=== PATIENT | male | born 1935 | race Caucasian/White ===

== ENCOUNTER → 2017-04-26 | Outpatient (CLI) | payer OTHER ==
[2017-04-27 14:53] LABS: Stool Occult Bld Immuno 1 Negative (NEGATIVE); Stool Occult Bld Immuno 2 Negative (NEGATIVE)
== END ==
LOC: LAB 09:00 → LAB SHORT 09:00 → LAB FUT 03-25 11:40
PROVIDERS: Internal Medicine Gastroenterology
DX: K57.30 Diverticulosis of large intestine without perforation or abscess without bleeding (principal); Z86.010 Personal history of colon polyps
CPT/HCPCS: G0328

== ENCOUNTER 2022-02-01 21:05 | Emergency (ER) | payer OTHER ==
[~2022-02-01] VITALS: Ht 167.6 cm; Wt 81.7 kg
== END 2022-02-01 22:42 | disposition home or self-care (01) ==
LOC: ER 21:05
DX: S42.211A Unspecified displaced fracture of surgical neck of right humerus, initial encounter for closed fracture (principal); W01.190A Fall on same level from slipping, tripping and stumbling with subsequent striking against furniture, initial encounter
CPT/HCPCS: 73030; A9270

== ENCOUNTER → 2022-10-07 | Outpatient (CLI) | payer OTHER ==
[2022-10-08 11:04] LABS: Stool Occult Blood Guaiac 1 Neg (Neg)
== END | disposition home or self-care (01) ==
LOC: LAB SHORT 10:30 → LAB 10:30
PROVIDERS: Family Medicine
DX: D50.9 Iron deficiency anemia, unspecified (principal)
CPT/HCPCS: 82272

== ENCOUNTER 2023-05-01 22:27 | Inpatient (IN) | payer OTHER ==
[~2023-05-01] VITALS: Ht 165.1 cm; Wt 86.2 kg
[2023-05-01] MEDS ORDERED: Ipratropium/Albuterol SulF 2.5-0.5MG/3 ML Amp INH ONE (22:35)
[2023-05-01] MEDS ORDERED: Magnesium Sulf 2 GM/Water 50ML 50 ML IV ONE (22:35)
[2023-05-01] MEDS ORDERED: Albuterol 2.5 MG/3 ML VIAL INH SCH ×2 (22:35→23:30)
[2023-05-01 22:42] LABS: Base Excess Venous -6.1 mmol/L; Bicarbonate Venous 18.3 mmol/L (24.0-30.0); PCO2 Venous 73.7 mmHg (38-42); pH Blood Venous 7.11 (7.34-7.37)
[2023-05-01 22:49] LABS: BASOPHILS ABSOLUTE AUTO 0.16 K/mm3 (0.00-0.23); BASOPHILS PERCENT AUTO 1 % (0-2); EOSINOPHILS ABSOLUTE AUTO 0.59 K/mm3 (0.00-0.68); EOSINOPHILS PERCENT AUTO 3 % (0-6); Hematocrit 42.2 % (37.0-53.0); Hemoglobin 13.7 g/dL (13.5-17.5); IMMATURE GRAN ABSOLUTE AUTO 0.09 K/mm3 (0.00-0.10); IMMATURE GRAN PERCENT AUTO 1 % (0-1); LYMPHOCYTES PERCENT AUTO 27 % (21-46); MONOCYTES ABSOLUTE AUTO 1.39 K/mm3 (0.16-1.47); MONOCYTES PERCENT AUTO 8 % (4-13); Mean Corpuscular HGB 32.1 pg (26.0-34.0); Mean Corpuscular HGB Conc 32.5 g/dL (31.5-36.5); Mean Corpuscular Volume 99 fL (80-100); Mean Platelet Volume 11.1 fL (9.1-12.4); NEUTROPHILS ABSOLUTE AUTO 10.94 K/mm3 (1.96-9.15); NEUTROPHILS PERCENT AUTO 61 % (41-73); Platelet Count 236 K/mm3 (150-400); RDW Coefficient Variation 13.6 % (11.7-14.2); RDW Standard Deviation 49.6 fL (35.1-46.3); Red Blood Cell Count 4.27 M/mm3 (4.30-5.90); White Blood Cell Count 17.97 K/mm3 (4.00-11.30)
[2023-05-01] MEDS ORDERED: NS 1,000 ML IV SCH (23:05)
[2023-05-01] MEDS ORDERED: CefTRIAXone Sodium 1,000 MG in NS 50 ML IV ONE (23:05)
[2023-05-01 23:10] LABS: Albumin, Blood 3.6 g/dL (3.4-5.0); Albumin/Globulin Ratio 0.8 (0.8-1.8); Bilirubin, Total 0.6 mg/dL (0.1-1.0); Bun/Creatinine Ratio 24.4 (12.0-20.0); Calcium, Blood 9.2 mg/dL (8.5-10.1); Creatinine, Blood 0.98 mg/dL (0.60-1.20); Globulin, Blood 4.4 g/dL (2.2-4.0); Magnesium, Blood 2.2 mg/dL (1.6-2.4); Potassium, Blood 4.4 mmol/L (3.5-5.5)
[2023-05-01] MEDS ORDERED: Metoclopramide HCl 5MG / ML 2ML Vial IV ONE (23:10)
[2023-05-01 23:52] LABS: Adenovirus Not Detected (NOT DETECT); Bordetella pertussis Not Detected (NOT DETECT); Chlamydophila pneumoniae Not Detected (NOT DETECT); Coronavirus 229E Not Detected (NOT DETECT); Coronavirus HKU1 Not Detected (NOT DETECT); Coronavirus NL63 Not Detected (NOT DETECT); Coronavirus OC43 Not Detected (NOT DETECT); Human Metapneumovirus Not Detected (NOT DETECT); Human Rhinovirus/Enterovirus Not Detected (NOT DETECT); Influenza A/2009-H1 Not Detected (NOT DETECT); Influenza A/H1 Not Detected (NOT DETECT); Influenza A/H3 Not Detected (NOT DETECT); Influenza B Not Detected (NOT DETECT); Mycoplasma pneumoniae Not Detected (NOT DETECT); Parainfluenza Virus 1 Not Detected (NOT DETECT); Parainfluenza Virus 2 Not Detected (NOT DETECT); Parainfluenza Virus 3 Not Detected (NOT DETECT); Parainfluenza Virus 4 Not Detected (NOT DETECT); Respiratory Syncytial Virus Not Detected (NOT DETECT); SARS-Cov-2 (COVID-19), BioFire Not Detected (NOT DETECT)
[2023-05-02] VITALS (15 sets, daily range): BP systolic 110–183; BP diastolic 54–86
[2023-05-02] MEDS ORDERED: FLU VACC QS2023-24(6MOS UP)/PF 60 MCG/0.5 ML SYRINGE IM ONE (00:30)
[2023-05-02] MEDS ORDERED: Ipratropium/Albuterol SulF 2.5-0.5MG/3 ML Amp INH SCH (03:10)
[2023-05-02] MEDS ORDERED: Albuterol 2.5 MG/3 ML VIAL INH PRN (03:15)
[2023-05-02] MEDS ORDERED: MethylPREDNISolone Sod Succ 125 MG Vial IV SCH (04:00)
[2023-05-02] MEDS ORDERED: NS 1,000 ML IV SCH (06:00)
[2023-05-02] MEDS ORDERED: HydrALAZINE HCl 20 MG / ML 1ML Vial IV PRN (06:05)
--- NOTE | 2023-05-02 06:07 | NUR ---
PT ARRIVED IN THE UNIT AT APPROX 0330a PT WAS TRANSFERRED TO PCU BED VIA SLIDER SHEET, PT WAS ON BIPAP MASK UPON ARRIVAL SETTINGS 16/8 30% FIO2. PT ABLE TO STAND MINIMAL ASSIST TO USE THE URINAL, PT ABLE TO ANSWER QUESTIONS APPROPRIATELY ALERT ADN ORIENTED X3-4. SOB WITH EXERTION. VITALS HRR SR/ST 70-110'S, SBP 180'S INITIALLY WHEN PT ARRIVED IN THE ROOM TRENDED DOWN TO 120-140'S AT THIS TIME PT CURRENTLY SLEEPING, SATS ABOVE 90% ON BIPAP, AFEBRILE, PT DENIES CHEST PAIN/PRESSURE/DISCOMFORT. PT'S SON WAS IN THE ROOM DURING HX ASSESSMENT, MEDS NOT RECONCILED SON TO BRING LIST OF MEDS TODAY. PT NPO FOR NOW. PT RESTING AT THIS TIME, CALL LIGHTS WITHIN REACH WILL REPORT TO ONCOMING SHIFT
[2023-05-02] MEDS ORDERED: Losartan Potassium 50 MG Tab PO SCH (07:00)
[2023-05-02 07:09] LABS: Base Excess Venous -4.3 mmol/L; Bicarbonate Venous 20.8 mmol/L (24.0-30.0); PCO2 Venous 43.4 mmHg (38-42); pH Blood Venous 7.31 (7.34-7.37)
[2023-05-02] MEDS ORDERED: Indapamide 2.5 MG Tab PO SCH (08:00)
[2023-05-02] MEDS ORDERED: Lactobacil 2-S.Thermo-Bifido 1 1 Cap PO SCH ×2 (09:00)
[2023-05-02] MEDS ORDERED: Enoxaparin 40 MG/0.4 ML SYR SC SCH (09:00)
[2023-05-02] MEDS ORDERED: Azithromycin 500 MG in NS 250 ML IV SCH (09:00)
--- NOTE | 2023-05-02 17:40 | NUR ---
SHIFT SUMMARY PT ALERT, ORIENTED X4; CALM AND COOPERATIVE WITH CARE. ABLE TO MAKE NEEDS KNOWN. PT DENIES PAIN, CHEST PAIN/PRESSURE, NAUSEA, DIZZINESS AND NUMB/TINGLING. PT ON BIPAP 16/8 BUR 20 FIO2 30% THIS AM, PLACED ON 6L O2 VIA NC, HAD EPISODE AFTER BREAKFAST OF SOB AND REQUEST BIPAP, REMOVED AGAIN FOR LUNCH AND PLACE ON 6L O2 VIA NC AND HAVE TITRATED DOWN TO RA THIS EVENING. TELE SINUS, ELEVATED TRENDING DOWN T/O SHIFT. ABD DISTENDED, FIRM, PT STATES NORMAL FOR HIM, +BT T/O. CLARIFIED ORDERS FOR NS AT 250, OK TO STOP AFTER 1 BAG; NEW ORDERS FOR HEART HEALTHY DIET, D/C DUPLICATED PROBIOTIC. OTHER VSS. NO OTHER ACUTE CHANGES NOTED. WILL CONTINUE TO MONITOR.
[2023-05-02] MEDS ORDERED: INDAPAMIDE PO (18:12)
[2023-05-02] MEDS ORDERED: LOSA50 PO (18:14)
[2023-05-02] MEDS ORDERED: FLUTICASONE-SA1 EAC9 INH (18:14)
[2023-05-02] MEDS ORDERED: FLUTICASONE PRO16 GM (18:14)
[2023-05-02] MEDS ORDERED: DOXAZOSIN MESYLA1 M2 PO (18:15)
[2023-05-02] MEDS ORDERED: Ventolin/Prove6.7 GM INH (18:15)
[2023-05-02] MEDS ORDERED: LATA.005SO BOTHEYES (18:36)
[2023-05-02] MEDS ORDERED: DORZOLAMIDE-TIM10 ML BOTHEYES (18:37)
[2023-05-02] MEDS ORDERED: FERROUSUL325 MG PO (18:38)
[2023-05-02] MEDS ORDERED: Latanoprost 0.005% Opth Soln 2.5 ML BOTHEYES SCH (21:00)
[2023-05-02] MEDS ORDERED: Doxazosin Mesylate 2 MG Tab PO SCH (21:00)
[2023-05-02] MEDS ORDERED: Dorzolamide/Timolol Opth Soln 10 ML BOTHEYES SCH (21:00)
--- NOTE | 2023-05-02 22:21 | NUR ---
ASSUMPTION OF CARE AFTER RECEIVING REPORT FROM GREOGRY BAHENA, THIS RN ASSUMED CARE AT APPROX 1915. PATIENT IS ALERT AND ORIENTED X4. COOPERATIVE WITH CARE. COMMUNICATES NEEDS EFFECTIVELY. TELEMETRY SHOWING SINUS 80s. RATE INCREASE TO 90s-100s WITH MOBILITY. DENIES CHEST PAIN, PRESSURE. BP STABLE. ON ROOM AIR, SATs >90%. EXPERIENCES DYSPNEA WITH MOBILITY, ABLE TO RECOVER WITH REST. DOES NOT REQUIRE SUPPLEMENTAL OXYGEN. USES BIPAP, 16/8 30%, PRN AND WHILE SLEEPING. IS A ONE PERSON ASSIST WITH MOBILITY FOR CORD, DEVICE MANAGEMENT. URINAL AT BEDSIDE. CALL LIGHT IN REACH.
[2023-05-03 02:53] VITALS: BP 135/78
--- NOTE | 2023-05-03 05:28 | NUR ---
SHIFT SUMMARY NO ACUTE CHANGES SINCE ASSUMPTION OF CARE. PATIENT SLEPT THROUGHOUT, IS EASILY AROUSABLE TO VERBAL STIMULI. USES CALL LIGHT APPROPRIATELY. TELEMETRY SHOWING SINUS 70s. BP STABLE, SBP 130s-150s. MAP >65. TOLERATED USE OF BIPAP WHILE SLEEPING, SETTINGS REMAIN 16/8 30%. SATs >90%. RESPIRATIONS EVEN, UNLABORED. EXPERIENCES MILD SHORTNESS OF BREATH WITH MOBILITY, EASES WITH REST. IS A STAND BY ASSIST FOR CORD, DEVICE MANAGEMENT WITH MOBILITY. ABLE TO REPOSITION HIMSELF INDEPENDENTLY IN BED. VOIDING. NO BM THIS SHIFT. CALL LIGHT IN REACH. WILL REPORT TO ONCOMING RN.
[2023-05-03 07:10] LABS: BASOPHILS ABSOLUTE AUTO 0.04 K/mm3 (0.00-0.23); BASOPHILS PERCENT AUTO 0 % (0-2); EOSINOPHILS PERCENT AUTO 0 % (0-6); Hemoglobin 11.6 g/dL (13.5-17.5); IMMATURE GRAN ABSOLUTE AUTO 0.22 K/mm3 (0.00-0.10); IMMATURE GRAN PERCENT AUTO 1 % (0-1); LYMPHOCYTES ABSOLUTE AUTO 1.37 K/mm3 (0.84-5.20); LYMPHOCYTES PERCENT AUTO 6 % (21-46); MONOCYTES ABSOLUTE AUTO 1.17 K/mm3 (0.16-1.47); MONOCYTES PERCENT AUTO 5 % (4-13); Mean Corpuscular HGB 31.7 pg (26.0-34.0); Mean Corpuscular HGB Conc 33.1 g/dL (31.5-36.5); Mean Corpuscular Volume 96 fL (80-100); Mean Platelet Volume 11.3 fL (9.1-12.4); NEUTROPHILS ABSOLUTE AUTO 19.06 K/mm3 (1.96-9.15); NEUTROPHILS PERCENT AUTO 87 % (41-73); Platelet Count 189 K/mm3 (150-400); RDW Standard Deviation 49.4 fL (35.1-46.3); Red Blood Cell Count 3.66 M/mm3 (4.30-5.90); White Blood Cell Count 21.86 K/mm3 (4.00-11.30)
[2023-05-03 07:43] LABS: Bun/Creatinine Ratio 35.7 (12.0-20.0); Calcium, Blood 8.7 mg/dL (8.5-10.1); Creatinine, Blood 0.84 mg/dL (0.60-1.20); Potassium, Blood 4.1 mmol/L (3.5-5.5)
[2023-05-03] MEDS ORDERED: PRED20 PO (11:22)
[2023-05-03] MEDS ORDERED: ZITHROMAX500 MG PO (11:23)
[2023-05-03] MEDS ORDERED: PROBIOTIC1 EA13 PO (11:24)
[2023-05-03] MEDS ORDERED: CEFP200 PO (11:26)
--- NOTE | 2023-05-03 13:37 | NUR ---
Discharge. Pt verbalized understanding of all discharge instructions. All personal belongings sent home with patient. Pt VS stable at time of discharge. Pt wheeled to lobby via wheelchair.
[2023-05-03] MEDS ORDERED: CefTRIAXone Sodium 1,000 MG in NS 50 ML IV SCH (21:00)
== END 2023-05-03 12:53 | disposition home or self-care (01) | DRG 871 ==
LOC: ER 22:27 → PCU 23:39 → EDBEDREQDT 05-02 00:24 → PCU 05-02 03:19
PROVIDERS: Family Medicine; Student in an Organized Health Care Education/Training Program; ADMIT Internal Medicine
PROC: 5A09357 Assistance with Respiratory Ventilation, Less than 24 Consecutive Hours, Continuous Positive Airway Pressure (ICD-10-PCS; principal; 2023-05-01)
PROC: 3E03329 Introduction of Other Anti-infective into Peripheral Vein, Percutaneous Approach (ICD-10-PCS; 2023-05-01)
DX: A41.9 Sepsis, unspecified organism (principal); J18.9 Pneumonia, unspecified organism; J96.21 Acute and chronic respiratory failure with hypoxia; J96.22 Acute and chronic respiratory failure with hypercapnia; J44.1 Chronic obstructive pulmonary disease with (acute) exacerbation; J44.0 Chronic obstructive pulmonary disease with (acute) lower respiratory infection; G93.49 Other encephalopathy; R65.20 Severe sepsis without septic shock; R94.31 Abnormal electrocardiogram [ECG] [EKG]; N40.0 Benign prostatic hyperplasia without lower urinary tract symptoms; I10 Essential (primary) hypertension; Z88.0 Allergy status to penicillin; Z88.8 Allergy status to other drugs, medicaments and biological substances; Z91.038 Other insect allergy status; Z91.010 Allergy to peanuts; Z11.52 Encounter for screening for COVID-19
CPT/HCPCS: 0202U; 36415; 71045; 80048; 80053; 82803; 83605; 83735; 84145; 85025; 87040; 93005; 93010; 94640; 94644; 94645; 94660; 94664; 94762; 96365; 96366; 96367; 96368; 96375; 99285-25; A9270; J0456; J0696; J1650; J2765; J2930; J3475; J7030; J7050

== ENCOUNTER → 2024-01-04 | Outpatient (CLI) | payer OTHER ==
[~2024-01-04] MED LIST: CEFP200 PO; DORZOLAMIDE-TIM10 ML BOTHEYES; DOXAZOSIN MESYLA1 M2 PO; FERROUSUL325 MG PO; FLUTICASONE PRO16 GM; FLUTICASONE-SA1 EAC9 INH; INDAPAMIDE PO; LATA.005SO BOTHEYES; LOSA50 PO; PRED20 PO; PROBIOTIC1 EA13 PO; Ventolin/Prove6.7 GM INH; ZITHROMAX500 MG PO
[2024-01-04 15:55] LABS: BASOPHILS ABSOLUTE AUTO 0.07 K/mm3 (0.00-0.23); BASOPHILS PERCENT AUTO 1 % (0-2); EOSINOPHILS ABSOLUTE AUTO 0.47 K/mm3 (0.00-0.68); EOSINOPHILS PERCENT AUTO 5 % (0-6); Hematocrit 37.9 % (37.0-53.0); Hemoglobin 12.3 g/dL (13.5-17.5); IMMATURE GRAN ABSOLUTE AUTO 0.03 K/mm3 (0.00-0.10); IMMATURE GRAN PERCENT AUTO 0 % (0-1); LYMPHOCYTES ABSOLUTE AUTO 2.29 K/mm3 (0.84-5.20); LYMPHOCYTES PERCENT AUTO 26 % (21-46); MONOCYTES ABSOLUTE AUTO 0.93 K/mm3 (0.16-1.47); MONOCYTES PERCENT AUTO 10 % (4-13); Mean Corpuscular HGB Conc 32.5 g/dL (31.5-36.5); Mean Corpuscular Volume 99 fL (80-100); Mean Platelet Volume 11.7 fL (9.1-12.4); NEUTROPHILS ABSOLUTE AUTO 5.15 K/mm3 (1.96-9.15); NEUTROPHILS PERCENT AUTO 58 % (41-73); Platelet Count 183 K/mm3 (150-400); RDW Coefficient Variation 14.3 % (11.7-14.2); RDW Standard Deviation 51.8 fL (35.1-46.3); Red Blood Cell Count 3.84 M/mm3 (4.30-5.90); White Blood Cell Count 8.94 K/mm3 (4.00-11.30)
[2024-01-04 16:32] LABS: Albumin, Blood 3.5 g/dL (3.4-5.0); Albumin/Globulin Ratio 0.9 (0.8-1.8); Bilirubin, Total 0.6 mg/dL (0.1-1.0); Calcium, Blood 9.5 mg/dL (8.5-10.1); Globulin, Blood 3.8 g/dL (2.2-4.0); Potassium, Blood 4.4 mmol/L (3.5-5.5); Total Protein, Blood 7.3 g/dL (6.4-8.2)
== END | disposition home or self-care (01) ==
LOC: LAB 14:51 → LAB SHORT 14:51
PROVIDERS: Family Medicine
DX: I10 Essential (primary) hypertension (principal)
CPT/HCPCS: 80053; 85025

== ENCOUNTER → 2024-07-25 | Outpatient (CLI) | payer OTHER ==
[2024-07-25 16:40] LABS: BASOPHILS PERCENT AUTO 1 % (0-2); EOSINOPHILS ABSOLUTE AUTO 0.55 K/mm3 (0.00-0.68); EOSINOPHILS PERCENT AUTO 6 % (0-6); Hematocrit 37.3 % (37.0-53.0); Hemoglobin 12.2 g/dL (13.5-17.5); IMMATURE GRAN ABSOLUTE AUTO 0.02 K/mm3 (0.00-0.10); IMMATURE GRAN PERCENT AUTO 0 % (0-1); LYMPHOCYTES ABSOLUTE AUTO 2.17 K/mm3 (0.84-5.20); LYMPHOCYTES PERCENT AUTO 24 % (21-46); MONOCYTES ABSOLUTE AUTO 0.91 K/mm3 (0.16-1.47); MONOCYTES PERCENT AUTO 10 % (4-13); Mean Corpuscular HGB 31.9 pg (26.0-34.0); Mean Corpuscular HGB Conc 32.7 g/dL (31.5-36.5); Mean Corpuscular Volume 98 fL (80-100); Mean Platelet Volume 11.6 fL (9.1-12.4); NEUTROPHILS ABSOLUTE AUTO 5.44 K/mm3 (1.96-9.15); NEUTROPHILS PERCENT AUTO 59 % (41-73); Platelet Count 208 K/mm3 (150-400); RDW Coefficient Variation 14.5 % (11.7-14.2); RDW Standard Deviation 51.8 fL (35.1-46.3); Red Blood Cell Count 3.82 M/mm3 (4.30-5.90); White Blood Cell Count 9.19 K/mm3 (4.00-11.30)
[2024-07-25 16:47] LABS: Alanine Aminotransfer (ALT/SGP 22 U/L (12-78); Albumin, Blood 3.5 g/dL (3.4-5.0); Alk Phos 103 U/L (50-136); Anion Gap 11 mmol/L (3-11); Aspartate Aminotrans (AST/SGOT 49 U/L (12-37); Bilirubin, Total 0.5 mg/dL (0.1-1.0); Blood Urea Nitrogen 26 mg/dL (8-24); Bun/Creatinine Ratio 29.8 (12.0-20.0); CHOL/HDL RATIO 2.5; CO2, Blood 24 mmol/L (21-32); Chloride, Blood 108 mmol/L (98-108); Cholesterol 155 mg/dL (50-200); Creatinine, Blood 0.87 mg/dL (0.60-1.20); Globulin, Blood 3.6 g/dL (2.2-4.0); Glomerular Filtration Rate 83 (60-); Glucose, Blood 96 mg/dL (70-99); HDL Cholesterol 61 mg/dL (>39); LDL/HDL RATIO 1.2; Low Density Lipoprotein Chol 76 mg/dL (0-110); Potassium, Blood 4.2 mmol/L (3.5-5.5); Sodium, Blood 139 mmol/L (136-145); Total Protein, Blood 7.1 g/dL (6.4-8.2); Triglycerides 89 mg/dL (30-160); Very Low Density Lipoprot Chol 17 mg/dL (6-32)
== END | disposition home or self-care (01) ==
LOC: LAB SHORT 14:53 → LAB 14:53
PROVIDERS: Family Medicine
DX: Z51.81 Encounter for therapeutic drug level monitoring (principal); Z79.899 Other long term (current) drug therapy
CPT/HCPCS: 80053; 80061; 82306; 83036; 84443; 85025

== ENCOUNTER → 2025-01-23 | Outpatient (CLI) | payer OTHER ==
[2025-01-23 18:51] LABS: BASOPHILS ABSOLUTE AUTO 0.10 K/mm3 (0.00-0.23); BASOPHILS PERCENT AUTO 1 % (0-2); EOSINOPHILS ABSOLUTE AUTO 0.63 K/mm3 (0.00-0.68); EOSINOPHILS PERCENT AUTO 7 % (0-6); Hematocrit 36.8 % (37.0-53.0); Hemoglobin 12.2 g/dL (13.5-17.5); IMMATURE GRAN ABSOLUTE AUTO 0.02 K/mm3 (0.00-0.10); IMMATURE GRAN PERCENT AUTO 0 % (0-1); LYMPHOCYTES ABSOLUTE AUTO 2.44 K/mm3 (0.84-5.20); LYMPHOCYTES PERCENT AUTO 26 % (21-46); MONOCYTES ABSOLUTE AUTO 0.80 K/mm3 (0.16-1.47); MONOCYTES PERCENT AUTO 9 % (4-13); Mean Corpuscular HGB Conc 33.2 g/dL (31.5-36.5); Mean Corpuscular Volume 99 fL (80-100); NEUTROPHILS ABSOLUTE AUTO 5.38 K/mm3 (1.96-9.15); NEUTROPHILS PERCENT AUTO 58 % (41-73); NRBC ABSOLUTE 0.00 K/mm3 (0.00-0.02); NRBC Auto 0.0 /100 WBC (0.0-0.2); Platelet Count 195 K/mm3 (150-400); RDW Coefficient Variation 14.1 % (11.7-14.2); RDW Standard Deviation 51.5 fL (35.1-46.3)
[2025-01-24 04:45] LABS: Anion Gap 8.0 mmol/L (3-11); Blood Urea Nitrogen 29.0 mg/dL (8-24); CO2, Blood 26.0 mmol/L (21-32); Calcium, Blood 9.4 mg/dL (8.5-10.1); Chloride, Blood 110.0 mmol/L (98-108); Creatinine, Blood 0.95 mg/dL (0.60-1.20); Ferritin, Serum 145.0 ng/mL (26-388); Glucose, Blood 110.0 mg/dL (70-99); Potassium, Blood 4.3 mmol/L (3.5-5.5); Sodium, Blood 140.0 mmol/L (136-145); Total Iron Binding Capacity 291.0 ug/dL (250-450)
== END ==
LOC: LAB SHORT 17:37 → LAB 17:37
PROVIDERS: Family Medicine
DX: I10 Essential (primary) hypertension (principal); D50.8 Other iron deficiency anemias
CPT/HCPCS: 80048; 82728; 83540; 83550; 85025